=== PATIENT | female | born 1945 | race Caucasian/White ===

== ENCOUNTER 2018-07-26 14:51 | Outpatient (REF) | payer MEDICARE, OTHER, SELFPAY ==
[2018-07-26 21:08] LABS: TSH (W/Ref FT4) 1.18 uIU/mL (0.358-3.74)
[2018-07-28 10:59] LABS: Hepatitis C Ab w Rflx HCV PCR Negative (NEGAT)
== END 2018-07-26 15:11 ==
LOC: NCHCN 14:51
PROVIDERS: Visit Provider Nurse Practitioner Family
DX: N95.1 Menopausal and female climacteric states (principal); R19.8 Other specified symptoms and signs involving the digestive system and abdomen; M81.0 Age-related osteoporosis without current pathological fracture; Z78.0 Asymptomatic menopausal state; I10 Essential (primary) hypertension; Z11.59 Encounter for screening for other viral diseases
CPT/HCPCS: 86803; 84443

== ENCOUNTER 2018-08-03 00:54 | Outpatient (CLI) | payer MEDICARE, OTHER, SELFPAY ==
--- NOTE | 2018-08-03 14:15 | DI.DEXA_ITS ---
SYMPTOM/DIAGNOSIS: SCREENING FOR OSTEOPOROSIS IN A POSTMENOPAUSAL WOMAN, Z78.0 DEXA SCAN: Routine examination. Comparison is made with 2008. Evaluation of the lateral spine image shows no compression deformities. Evaluation of the right hip shows a total T score of -1.7 and a Z score of -0.1, this compares with a total T score of -0.8 from 2008. This is consistent with osteopenia and an increased fracture risk. Evaluation of the lumbar spine shows a total T score of -1.4 and a Z score of 0.9. This is consistent with osteopenia and an increased fracture risk. This compares with a total T score of -0.3 from 2008. There is no evidence of osteoporosis. IMPRESSION: Osteopenia in the left hip and lumbar spine.
== END 2018-08-03 01:14 ==
PROVIDERS: PCP Nurse Practitioner Family; Visit Provider Nurse Practitioner Family
DX: M85.88 Other specified disorders of bone density and structure, other site (principal); Z78.0 Asymptomatic menopausal state
CPT/HCPCS: 77080

== ENCOUNTER 2019-01-18 01:13 | Outpatient (CLI) | payer MEDICARE, SELFPAY ==
--- NOTE | 2019-01-18 08:22 | DI.MAMMO_ITS ---
SYMPTOM/DIAGNOSIS: SCREENING, Z12.31, [facility], Z00.00 MAMMOGRAMS: Mammograms were interpreted according to the usual protocol including computer analysis with CAD system, tomosynthesis and C view imaging. Comparison is made with exams from 8035-3796. The breasts are composed of scattered fibroglandular densities, breast density, Category B. No suspicious masses or suspicious microcalcifications are seen. There has been no significant change. IMPRESSION: Category 1, negative mammogram. Yearly screening mammography is recommended. [facility] ASSESSMENT OF FINDINGS: Negative. Category 1. Patient will receive a letter notifying them of these results. BI-RADS category B. There are scattered areas of fibroglandular density.
== END 2019-01-18 01:33 ==
PROVIDERS: PCP Nurse Practitioner Family; Visit Provider Nurse Practitioner Family
DX: Z12.31 Encounter for screening mammogram for malignant neoplasm of breast (principal)
CPT/HCPCS: 77063; 77067

== ENCOUNTER 2020-05-04 14:44 | Outpatient (REF) | payer MEDICARE, SELFPAY | END 2020-05-04 15:04 | LOC: NCHCN 14:44 | PROVIDERS: PCP Nurse Practitioner Family; Visit Provider Internal Medicine | DX: N39.0 Urinary tract infection, site not specified (principal) | CPT/HCPCS: 87077; 87086; 87186 ==

== ENCOUNTER 2020-07-31 01:33 | Outpatient (CLI) | payer MEDICARE, SELFPAY ==
--- NOTE | 2020-07-31 12:45 | DI.MAMMO_ITS ---
EXAM: MAMMO SCREENING CLINICAL HISTORY: SCREENING,Z12.31 TECHNIQUE: Bilateral full field digital CC and MLO mammographic images were obtained with 3D tomosyn thesis and utilizing computer aided detection (CAD). COMPARISON: Available for comparison. FINDINGS: Masses/Architectural Distortion: There is an asymmetric density in the posterior superior left breast on the MLO view. Microcalcifications: No suspicious pleomorphic-type are seen. Skin Thickening/Nipple Retraction: None. IMPRESSION: 1. Asymmetric density in the posterior superior left breast on the MLO view. 2. Spot compression view and a left breast ultrasound are recommended for further evaluation. BI-RADS Category 0 - Assessment Incomplete: Need additional imaging evaluation Breast Density - Category B - Scattered areas of fibroglandular density A negative radiographic report should not delay biopsy if a dominant or clinically suspicious mass is present. Up to ten percent of cancers are not identified on mammography. A negative report may reinforce clinical impression. Adenosis and dense breasts may obscure an underlying neoplasm. False positive reports average 6 to 10%. Patient will receive a letter notifying them of these results.
== END 2020-07-31 01:53 ==
PROVIDERS: PCP Nurse Practitioner Family
DX: Z12.31 Encounter for screening mammogram for malignant neoplasm of breast (principal); R92.8 Other abnormal and inconclusive findings on diagnostic imaging of breast
CPT/HCPCS: 77063; 77067

== ENCOUNTER 2020-08-03 04:08 | Outpatient (CLI) | payer MEDICARE, SELFPAY ==
--- NOTE | 2020-08-03 14:40 | DI.MAMMO_ITS ---
EXAM: MG MAMMO SCREEN CALL BACK UNI and U/S breast LT limited CLINICAL HISTORY: F/U MAMMO, ASYMMETRIC DENSITY POST SUPERIOR LT BREAST ON MLO VIEW. TECHNIQUE: Craniocaudal and mediolateral oblique Full Field Digital Mammography views of the left br east with Computer Aided Diagnosis followed by Tomosynthesis and left breast ultrasound. COMPARISON: Comparison with prior examinations. FINDINGS: Mammography/Tomosynthesis: Masses/Architectural Distortion: None seen. Microcalcifictions: No suspicious pleomorphic-type are seen. Skin Thickening/Nipple Retraction: None. Left breast US: Echotexture: Normal appearance of the glandular tissue. Shadowing: No suspicious foci. Cyst: None. Solid lesions: None seen. Ductal dilation: None. IMPRESSION: 1. No evidence of malignancy is noted. 2. Unless there is more urgent need, follow-up screening mammography is recommended, as per [place] [employer] guidelines. 3. The findings were discussed with the patient on the date of the examination. BI-RADS Category 1 - Negative Breast Density - Category B - Scattered areas of fibroglandular density A negative radiographic report should not delay biopsy if a dominant or clinically suspicious mass is present. Up to ten percent of cancers are not identified on mammography. A negative report may reinforce clinical impression. Adenosis and dense breasts may obscure an underlying neoplasm. False positive reports average 6 to 10%. Patient will receive a letter notifying them of these results.
== END 2020-08-03 04:28 ==
PROVIDERS: PCP Nurse Practitioner Family
DX: R92.8 Other abnormal and inconclusive findings on diagnostic imaging of breast (principal)
CPT/HCPCS: 76642; 77063; 77067

== ENCOUNTER 2020-08-14 00:42 | Outpatient (CLI) | payer MEDICARE, SELFPAY ==
--- NOTE | 2020-08-14 | DI.DEXA_ITS ---
EXAM: XR DEXA BONE DENSITY W/WO PEGGY CLINICAL HISTORY: OTHER SPECIFIC DISORDER OF BONE DENSITY,M85.88 TECHNIQUE: COMPARISON: Comparison examination is 08/03/2018. FINDINGS: Lateral Spine Image: Unremarkable. No compression deformities identified. Right hip: Total T-Score: -2.1. This compares with -1.7 on the prior examination. Total Z-Score: -0.4 T- and Z-scores: Findings are consistent with osteopenia and increased fracture risk. Lumbar Spine: Total T-Score: -1.8. This compares with -1.4 on the prior examination. Total Z-Score: 0.6 T- and Z-scores: Findings are consistent with osteopenia and increased fracture risk. IMPRESSION: Osteopenia in the lumbar spine and right hip.
== END 2020-08-14 01:02 ==
PROVIDERS: PCP Nurse Practitioner Family
DX: M85.88 Other specified disorders of bone density and structure, other site (principal)
CPT/HCPCS: 77080

== ENCOUNTER 2021-01-02 13:12 | Outpatient (REF) | payer MEDICARE, SELFPAY ==
[2021-01-02 22:59] LABS: Calculated LDL 139 mg/dL (<100); Cholesterol 230 mg/dL (<200); HDL Cholesterol 78 mg/dL (40-60); TSH (W/Ref FT4) 1.38 uIU/mL (0.36-3.74); Triglyceride 69 mg/dL (<150); Vitamin B12 266 pg/mL (193-986)
== END 2021-01-02 13:13 | disposition home or self-care (01) ==
LOC: NCHCN 13:12
PROVIDERS: PCP Nurse Practitioner Family
DX: G31.84 Mild cognitive impairment of uncertain or unknown etiology (principal); I10 Essential (primary) hypertension
CPT/HCPCS: 80061; 82607; 84443

== ENCOUNTER 2021-09-10 13:39 | Outpatient (REF) | payer MEDICARE, SELFPAY ==
--- OUTSIDE RECORDS SUMMARY | 2021-09-10 13:44 | XMS_ITS ---
:04/26/1947 External Reference #:[id number] Author Care Team Providers Name Role Phone Meg Primary Care Provider Unavailable Allergies None recorded. Medications Name Status Start Date Stop Date ? ? sulfamethoxazole 800 mg-trimethoprim 160 mg tablet Active ? Not available TAKE 1 TABLET BY MOUTH TWICE DAILY Problems Name Status Onset Date Source ? Vitamin D Deficiency Active 07/31/2021 ? Hyperlipidemia Active 07/31/2021 ? Diarrhea Active 07/31/2021 ? Dysuria Active 07/31/2021 ? Family History of Dementia Active 08/17/2021 ? Procedures None recorded. Results Lab Results None recorded. Past Encounters 08/08/2021 Diarrhea; Hyperlipidemia; Family History of Dementia Lindsey Weaver, ND: [address] [place] [address], Ph. [phone] 07/17/2021 Hyperlipidemia; Dysuria; Diarrhea; Vitam in D Deficiency; Family History of Dementia Lindsey Weaver, ND: [address] [place] [address], Ph. [phone] Social History None recorded. Vaccine List None recorded. Plan of Care Patient Instructions 1. TEsting requested first visit- l et me know if you want to go with [facility] prices or if your PCP will order some for you 2. Continue working with diet and return with log- 3. Genetic testing Apo E genotype instea d of comprehensive panel for memory related imbalances- we discussed 195 for this test alone 1, diet diary and sporebiotic and g i fortify lipa, b12/folate, vit D, cbc and chem 2 .b12 - 1 tab 2xday with complete multi 2 [id number] 3. UA- complete at [facility] apo E genotype quevedo and evexia workup? ther-biotic metabolic formula 1 cap 2xda y GI fortify 1 scoop 2xday in 10-12oz wate r or diluted juice then drink additional 10-12 oz after (wi thin the hour) Reminders Provider Appointments None recorded. ? ? Lab None recorded. ? ? Referral None recorded. ? ? Procedures None recorded. ? ? Surgeries None recorded. ? ? Imaging None recorded. ? ? Vitals Height Weight BMI 5 ft 2 in 112 lbs 20.5 kg/m2
--- OUTSIDE RECORDS SUMMARY | 2021-09-10 13:44 | XMS_ITS | Encounter Summary ---
:04/26/1947 External Reference #:[id number] Author Reason for Visit None recorded. Assessment and Plan Assessment Note I spent a total of 60 minutes face to face time with this patient and 35 minutes of that time was spent in counseling and coordination of care with that patient as described in the progress note and /or: recommended diagnostic studies Risk factor reduction instructions for treatment and follow-up 1. Hyperlipidemia ? high cholesterol: care ins tructions ? lipoprotein (a), quant, se rum 2. Dysuria ? painful urination (dysuria ): care instructions ? urinalysis, complete 3. Diarrhea ? diarrhea: care instruction s ? celiac disease comprehensi ve panel, serum ? CBC w/ diff ? CMP, serum or plasma 4. Vitamin D deficiency ? vitamin D, 25-hydroxy, tot al, serum 5. Family history of dementia ? apolipoprotein E genotype, blood Discussion Note: None recorded. Plan of Care Patient Instructions 1, diet diary and sporebiotic and g i fortify lipa, b12/folate, vit D, cbc and chem 2 .b12 - 1 tab 2xday with complete multi 2 [id number] 3. UA- complete at [facility] apo E genotype quevedo and evexia workup? ther-biotic metabolic formula 1 cap 2xda y GI fortify 1 scoop 2xday in 10-12oz wate r or diluted juice then drink additional 10-12 oz after (wi thin the hour) Reminders Provider Appointments None recorded. ? ? Lab Lipoprotein (a), ? Quant, Serum 07/17/2021 ? Urinalysis, [facility] Complete 07/17/2021 [facility] ? Celiac Disease ? Comprehensive Panel, Serum 07/31/2021 ? CBC W/ Diff ? 07/31/2021 ? CMP, Serum or ? Plasma 07/31/2021 ? Vitamin D, ? 25-Hydroxy, Total, Serum 07/31/2021 ? Apolipoprotein E ? Genotype, Blood 07/31/2021 Referral None recorded. ? ? Procedures None recorded. ? ? Surgeries None recorded. ? ? Imaging None recorded. ? ? Medications Name Start Date ? ? sulfamethoxazole 800 mg-trimethoprim 160 mg tablet ? TAKE 1 TABLET BY MOUTH TWICE DAILY Medications Administered None recorded. Vitals Height Weight BMI 5 ft 2 in 112 lbs 20.5 kg/m2 Results Lab Results None recorded. Allergies None recorded. Problems Name Status Onset Date Source ? Vitamin D Deficiency Active 07/31/2021 ? Hyperlipidemia Active 07/31/2021 ? Diarrhea Active 07/31/2021 ? Dysuria Active 07/31/2021 ? Family History of Dementia Active 08/17/2021 ? Procedures None recorded. Vaccine List None recorded. Social History None recorded. Functional Status Unknown. Past Encounters 07/17/2021 Hyperlipidemia; Dysuria; Diarrhea; Vitam in D Deficiency; Family History of Dementia Lindsey Weaver, ND: [address] [place] [address], Ph. 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
</div><div>she is able to answer all my questions accurately and able to expplain health history ac curately as i looked up her records on [facility]- </div><div>
</div> Review of Systems None recorded. Physical Exam ? General Adult Exam Reported By: Patient Constitutional: General Appearance: healthy- appearing, well-nourished, well-developed. Level of Dis tress: NAD. Ambulation: ambulating normally Psychiatric: Insight: good judgement. Men braden Status: active and alert, normal mood, normal affect. Orienta tion: to time, to place, to person. Memory: remote memory normal , recent memory abnormal; according to her family- not in office to day Head: Head: normocephalic, atrauma tic Eyes: Lids and Conjunctivae: non-i njected, no discharge, no pallor. Pupils: PERRLA. Corneas: opa city. Fundoscopic: grossly normal except where noted, normal o ptic discs, normal vessels, no exudates, no hemorrhages. EO M: EOMI. Lens: clear. Sclerae: non-icteric. Vision: periphe ral vision grossly intact, acuity grossly intact ENMT: Ears: no lesions on external ear, EACs clear, TMs clear, TM mobility normal. Hearing: no hearing loss. Nose: no lesions on external nose, nares patent, no septal deviation, nasal passages clear, no sinus tenderness, no nasal discharge. Lips, Teeth, and Gums: no mouth or lip ulcers , no bleeding gums, normal dentition. Oropharynx: moist mucous mem branes, no erythema, no exudates, tonsils not enlarged Neck: Neck: supple, trachea midlin e, no masses, FROM. Lymph Nodes: no cervical LAD, no supraclavic ular LAD, no axillary LAD, no inguinal LAD. Thyroid: no enlargement , non-tender, no nodules Lungs: Respiratory effort: no dyspn ea. Percussion: no dullness, flatness, or hyperresonance. Auscultat ion: breath sounds normal, good air movement, CTA except as note d, no wheezing, no rales/crackles, no rhonchi Cardiovascular: Apical Impulse: not displace d. Heart Auscultation: RRR, normal S1, normal S2, no murmurs, no ru bs, no gallops. Neck vessels: no carotid bruits. Pulses inclu ding femoral / pedal: normal throughout Abdomen: Bowel Sounds: normal. Inspec tion and Palpation: soft, non-distended, no tenderness , no guarding, no rebound tenderness, no masses, no CVA tenderness . Liver: non-tender, no hepatomegaly. Spleen: non-tender, no splen omegaly. Hernia: none palpable Musculoskeletal:: Motor Strength and Tone: nor mal motor strength, normal tone. Joints, Bones, and Muscles: normal movement of all extremities, no bony abnormalities, no contr actures, no malalignment, no tenderness. Extremities: no cyanosis, no edema, no varicosities, no palpable cord Neurologic: Gait and Station: normal gai t, normal station. Cranial Nerves: grossly intact. Sensation: g rossly intact, monofilament test intact. Coordination and Cer ebellum: no tremor Skin: Inspection and palpation: no rash, no lesions, no ulcer, no abnormal nevi, no induration , no nodules, good turgor, no jaundice. Nails: normal Back: Thoracolumbar Appearance: no rmal curvature
--- OUTSIDE RECORDS SUMMARY | 2021-09-10 13:44 | XMS_ITS | Encounter Summary ---
:04/26/1947 External Reference #:[id number] Author Reason for Visit None recorded. Assessment and Plan Assessment Note I spent a total of 40 minutes face to face time with this patient and 25 minutes of that time was spent in counseling and coordination of care with that patient as described in the progress note and /or: recommended diagnostic studies diagnostic results and impressions-diet log with BM 1. Diarrhea ? diarrhea: care instruction s 2. Hyperlipidemia ? high cholesterol: care ins tructions 3. Family history of dementia Discussion Note: None recorded. Plan of Care Patient Instructions 1. TEsting requested first visit- l et me know if you want to go with [email or web address] or if your PCP will order some for you 2. Continue working with diet and return with log- 3. Genetic testing Apo E genotype instea d of comprehensive panel for memory related imbalances- we discussed 195 for this test alone Reminders Provider Appointments None recorded. ? ? Lab None recorded. ? ? Referral None recorded. ? ? Procedures None recorded. ? ? Surgeries None recorded. ? ? Imaging None recorded. ? ? Medications Name Start Date ? ? sulfamethoxazole 800 mg-trimethoprim 160 mg tablet ? TAKE 1 TABLET BY MOUTH TWICE DAILY Medications Administered None recorded. Vitals None recorded. Results Lab Results None recorded. Allergies None recorded. Problems Name Status Onset Date Source ? Vitamin D Deficiency Active 07/31/2021 ? Hyperlipidemia Active 07/31/2021 ? Diarrhea Active 07/31/2021 ? Dysuria Active 07/31/2021 ? Family History of Dementia Active 08/17/2021 ? Procedures None recorded. Vaccine List None recorded. Social History None recorded. Functional Status Unknown. Past Encounters 08/08/2021 Diarrhea; Hyperlipidemia; Family History of Dementia Lindsey Weaver ND: [address] [facility] [place] [address], Ph. [phone] 07/17/2021 Hyperlipidemia; Dysuria; Diarrhea; Vitam in D Deficiency; Family History of Dementia Lindsey Weaver ND: [address] [place] [address], Ph. [phone] History of Present Illness Note: <div>she feels better more energy</div><div>her stomach isnot longer bloated </div><div>more stools are 2-5 instead of 1/2 or 7</div><div>more xconsisten0- </div><div> we discussed lab panels- she is not wanting to spend money at this time</div> Review of Systems None recorded. Physical Exam None recorded.
[2021-09-10 15:30] LABS: TSH (W/Ref FT4) 1.71 uIU/mL (0.36-3.74); Vitamin B12 212 pg/mL (193-986)
== END 2021-09-10 13:40 | disposition home or self-care (01) ==
LOC: NCHCN 13:39
PROVIDERS: PCP Nurse Practitioner Family; Visit Provider Nurse Practitioner Family
DX: R41.3 Other amnesia (principal); M25.552 Pain in left hip
CPT/HCPCS: 82607; 84443

== ENCOUNTER 2022-01-16 11:08 | Outpatient (CLI) | payer MEDICARE, SELFPAY ==
--- NOTE | 2022-01-16 10:45 | DI.RAD_ITS ---
Exam(s) XR HIP LT AP LAT ONLY EXAM: XR HIP LT AP LAT ONLY CLINICAL HISTORY: LEFT HIP PAIN. TECHNIQUE: 2D digital imaging was performed. COMPARISON: CR XR DEXA BONE DENSITY W/WO PEGGY from 08/14/2020 FINDINGS: Two views There is a left hip prosthesis. Components appear to be in satisfactory position alignment. No frac tures. No loosening evident. No radiographic evidence of osteomyelitis. IMPRESSION: DATA REPOSITORY: RADIATION DOSE DELIVERED:
== END 2022-01-16 11:09 | disposition home or self-care (01) ==
LOC: DIORS 11:08
PROVIDERS: PCP Nurse Practitioner Family; Referring Provider Nurse Practitioner Family; Visit Provider Student in an Organized Health Care Education/Training Program
DX: Z96.642 Presence of left artificial hip joint (principal); M25.552 Pain in left hip
CPT/HCPCS: 99203; 73502

== ENCOUNTER → 2022-01-29 00:53 | Outpatient (CLI) | payer MEDICARE, OTHER, SELFPAY ==
--- NOTE | 2022-01-29 06:45 | DI.NM_ITS ---
Exam(s) NM BONE SCAN 3 PHASE EXAM: [place] BONE SCAN 3 PHASE CLINICAL HISTORY: Painful left SACHIN,Z96.642. TECHNIQUE: Injected Dose: 25 mCi Tc-99m MDP COMPARISON: CR XR HIP LT AP LAT ONLY from 01/16/2022 FINDINGS: Perfusion: Symmetric. Blood Pool: Symmetric. Delayed: Photopenic area related to left hip prosthesis. Small focus of increased activity seen near tip femoral stem. No abnormality is visible on prior x-rays. No abnormal activity around the aceta bular component. The the patient's bladder is noted to be distended on the delayed images. The maninder ent emptied the bladder prior to imaging. This could indicate large postvoid residual. Degenerative changes and scoliosis are noted in the lumbar spine. IMPRESSION: Mildly increased activity at the tip of the femoral component of the left hip prosthesis which could indicate loosening. Distended bladder postvoid consistent with elevated postvoid residual. DATA REPOSITORY:
== END ==
PROVIDERS: PCP Nurse Practitioner Family; Visit Provider Physician Assistant
DX: M25.552 Pain in left hip (principal); Z96.642 Presence of left artificial hip joint
CPT/HCPCS: 78315

== ENCOUNTER 2022-01-29 01:17 | Outpatient (CLI) | payer MEDICARE, SELFPAY | END 2022-01-29 01:18 | disposition home or self-care (01) | LOC: LBO 01:17 | PROVIDERS: PCP Nurse Practitioner Family; Visit Provider Student in an Organized Health Care Education/Training Program ==

== ENCOUNTER 2022-02-06 02:31 | Outpatient (CLI) | payer MEDICARE, SELFPAY ==
--- OUTSIDE RECORDS SUMMARY | 2022-02-06 02:33 | XMS_ITS ---
[...] Diarrhea; Hyperlipidemia; Family History of Dementia Lindsey Herminiogia, ND: [address] [place] [address], Ph. [phone] 07/17/2021 Hyperlipidemia; Dysuria; Diarrhea; Vitam in D Deficiency; Family History of Dementia Lindsey Weaver, ND: [address] [place] [address], Ph. [phone] Social History None recorded. Vaccine List None [...] 1 tab 2xday with complete multi 2 [id number] 3. UA- complete at [facility] apo E genotype quevedo and evexia [...]
[2022-02-06 11:18] LABS: Calcium 8.6 mg/dL (8.5-10.1)
[2022-02-06 11:29] LABS: ESR < 1 mm/hr (0-30)
[2022-02-06 11:33] LABS: C-Reactive Protein 0.06 mg/dL (0.0-0.3)
[2022-02-06 11:39] LABS: Vitamin D 25 Total 34.3 ng/mL (30-100)
[2022-02-07 21:58] LABS: Cobalt, S 0.2 ng/mL
== END 2022-02-06 02:32 | disposition home or self-care (01) ==
LOC: LBO 02:31
PROVIDERS: Physician Assistant; PCP Nurse Practitioner Family; Visit Provider Student in an Organized Health Care Education/Training Program
DX: Z96.642 Presence of left artificial hip joint (principal); M81.0 Age-related osteoporosis without current pathological fracture
CPT/HCPCS: 36415; 82306; 85652; 82310; 82495; 83789; 86140

== ENCOUNTER → 2022-03-18 10:36 | Outpatient (BNVA) | payer MEDICARE, OTHER, SELFPAY | PROVIDERS: PCP Nurse Practitioner Family; Referring Provider Nurse Practitioner Family; Visit Provider Nurse Practitioner Adult Health | DX: R41.89 Other symptoms and signs involving cognitive functions and awareness (principal) | CPT/HCPCS: 99204; 99214 ==

== ENCOUNTER → 2022-04-23 01:53 | Outpatient (CLI) | payer MEDICARE, OTHER, SELFPAY ==
--- NOTE | 2022-04-23 07:00 | DI.MRI_ITS ---
Exam(s) MR BRAIN WO EXAM: MR BRAIN WO CLINICAL HISTORY: memory changes, congnitive impairment, R41.89 TECHNIQUE: Multiplanar multisequence MRI of the brain was performed. COMPARISON: No exams were available for comparison FINDINGS: VENTRICLES AND EXTRA AXIAL SPACES: Normal in size and morphology for the patient's age. MIDLINE SHIFT: None. CEREBRAL PARENCHYMA: No focus of restricted diffusion to suggest acute infarct. No space-occupying le beatrice identified. There are areas of hyperintense signal in the white matter on the T2 and FLAIR image s likely reflecting small vessel ischemic disease. HEMORRHAGE: None. BRAINSTEM/CEREBELLUM: Normal. CALVARIUM: Normal. VISUALIZED PARANASAL SINUSES/MASTOIDS:Clear. [place] OF ROSS: Normal flow void. PITUITARY GLAND: Unremarkable. OTHER FINDINGS: None. IMPRESSION: 1. No evidence of an acute infarct. 2. Findings most suggestive of chronic microvascular ischemic disease. DATA REPOSITORY:
== END ==
PROVIDERS: PCP Nurse Practitioner Family; Visit Provider Nurse Practitioner Adult Health
DX: R41.89 Other symptoms and signs involving cognitive functions and awareness (principal)
CPT/HCPCS: 99213; 70551

== ENCOUNTER 2023-07-22 21:15 | Outpatient (REF) | payer MEDICARE, OTHER, SELFPAY | END 2023-07-22 21:16 | disposition home or self-care (01) | LOC: NCHCN 21:15 | PROVIDERS: PCP Nurse Practitioner Family; Visit Provider Nurse Practitioner Family | DX: R30.0 Dysuria (principal) | CPT/HCPCS: 87086 ==

== ENCOUNTER 2023-08-10 21:35 | Outpatient (REF) | payer MEDICARE, SELFPAY | END 2023-08-10 21:36 | disposition home or self-care (01) | LOC: NCHCN 21:35 | PROVIDERS: PCP Nurse Practitioner Family; Visit Provider Family Medicine | DX: R30.0 Dysuria (principal) | CPT/HCPCS: 87086 ==

== ENCOUNTER 2024-05-03 21:39 | Outpatient (REF) | payer MEDICARE, OTHER, SELFPAY | END 2024-05-03 21:40 | disposition home or self-care (01) | LOC: LBN 21:39 | PROVIDERS: PCP Nurse Practitioner Family; Visit Provider Nurse Practitioner Family | DX: N30.01 Acute cystitis with hematuria (principal) | CPT/HCPCS: 87077; 87086 ==

== ENCOUNTER 2025-07-22 18:34 | Emergency (ER) | payer MEDICARE, OTHER, SELFPAY ==
[2025-07-22 18:38] VITALS: BP 188/83; PULSE 98; RESP 16; TEMP 36.7; O2SAT 98
--- NOTE | 2025-07-22 18:48 | W.ED.GENAD ---
Discharge Plan Disposition Patient Disposition: Home Condition: Stable Discharge Details Clinical Impression: Hematuria Primary Care Provider: Rina Oviedo ED Provider: Lovely Peck Home Meds and New Rx's Prescriptions: No Action donepezil 5 mg tablet 5 mg PO QHS Qty: 30 3RF vitamin [id number] acid 2,500-400 mcg tablet,disintegrating 0.25 tab PO DAILY [employer] 1.5 billion cell capsule 1 cap PO .Every 3 days multivitamin [Daily Vitamin] 1 EACH tablet 1 ea PO DAILY rizatriptan [Maxalt] 10 MG tablet 10 mg PO PRN PRN calcium carbonate [Calcium 500] 500 MG tablet 500 mg PO DAILY Discharge Instructions Instructions: Blood in Urine (Hematuria), Adult ED Additional Instructions: Please follow-up closely with your primary care provider. No evidence of urinary tract infection. I cannot determine what is the cause for the blood in your urine at this time without further workup including labs and imaging. Please discuss getting a ultrasound or CT with your primary care. Referrals: Rina Oviedo [Primary Care Provider, Medicine] - 3 days Referral Note: ER follow up, Call for an appointment Clinical Impression: Hematuria HPI General Mode of arrival: ambulatory. Date/Time Provider Initiated Documentation: 07/22/25 18:44. Limitations to Documentation: no limitations. Information obtained by: patient, RN notes reviewed and old records reviewed. HPI Narrative: 80-year-old female presents to the ER with a chief complaint of hematuria which began today. Denies any vomiting, back pain abdominal pain fever or chills. Denies any other associated symptoms. Does not take any medications on a regular basis at home. Related Data Home Medications ?Medication ?Instructions ?Recorded ?Confirmed calcium carbonate (Calcium 500) 500 mg PO DAILY 10/17/13 04/23/22 multivitamin (Daily Vitamin tablet) 1 ea PO DAILY 10/17/13 04/23/22 rizatriptan 10 mg tablet (Maxalt) 10 mg PO PRN PRN 10/17/13 04/23/22 Lactobacills gasseri-Bifidobac 1 cap PO .Every 3 days 01/31/22 04/23/22 bifidum,longum 1.5 billion cell capsule ([employer]) vitamin B12 2,500 mcg-folic acid 0.25 tab PO DAILY 01/31/22 04/23/22 400 mcg disintegrating tablet donepezil 5 mg tablet 5 mg PO QHS #30 tabs 04/23/22 04/23/22 Previous Rx's ?Medication ?Instructions ?Recorded donepezil 5 mg tablet 5 mg PO QHS #30 tabs 04/23/22 Allergies Allergy/AdvReac Type Severity Reaction Status Date / Time codeine Allergy Intermediate Unknown Verified 07/22/25 18:42 pneumococcal vaccine Allergy Hives Unverified 07/22/25 18:42 (Pneumococcal Vaccine) ibuprofen (From Advil) AdvReac Intermediate Headache Unverified 07/22/25 18:42 General Stated Complaint: Urinary MAKEDA: 3 Review of Systems Gastrointestinal Gastrointestinal: Denies abdominal pain, Denies diarrhea and Denies nausea Genitourinary Genitourinary: Reports as per HPI and Reports hematuria Exam Narrative Exam Narrative: Constitutional: Alert and oriented x3. Appears stated age. Normal body habitus. Head: Normocephalic, no trauma. Eyes: Pupils PERRL, Red reflex noted, EOM's intact. Eyelids symmetrical without lesions, discharge, or swelling. ENT: Bilateral TM's WNL, External ear normal to inspection, no mastoid TTP, swelling, or erythema, Nasal turbinates WNL, no nasal discharge. Normal dentition, Posterior pharynx WNL, no exudate. Chest: RRR, Normal S1, S2, distal pulses intact. Resp: Lungs clear to auscultation bilaterally, no wheezes, rales, or rhonchi. Abdomen: Soft, non-distended, Normoactive bowel sounds all 4 quads. Musculoskeletal: Normal gait, Moves all 4 extremities without difficulty. Skin: No suspicious rashes or lesions. Capillary refill less than 2 sec. Neurologic: Cranial nerves II-XII intact. Alert and oriented x 3. Motor: No deficits noted. Sensory: Intact bilaterally all 4 extremities. Hematologic/Lymphatic: No ecchymosis, no lymphadenopathy. Course Vital Signs Vital signs: Vital Signs Temperature 36.7 C 07/22/25 18:38 Pulse 98 H 07/22/25 18:38 Respiratory Rate 16 07/22/25 18:38 Blood Pressure 188/83 H 07/22/25 18:38 Pulse Oximetry 98 07/22/25 18:38 Temperature 36.7 C 07/22/25 18:38 Temperature Source Oral 07/22/25 18:38 Pulse 98 H 07/22/25 18:38 Respiratory Rate 16 07/22/25 18:38 Blood Pressure 188/83 H 07/22/25 18:38 Pulse Oximetry 98 07/22/25 18:38 Oxygen Delivery Method Room Air 07/22/25 18:38 Oxygen Flow Rate 0 07/22/25 18:38 Medical Decision Making 80-year-old female presents to the ER with a chief complaint of hematuria which began today. Denies any vomiting, back pain abdominal pain fever or chills. Denies any other associated symptoms. Does not take any medications on a regular basis at home. Urinalysis shows greater than 50 RBCs, greater than 300 protein, large blood. No nitrites no leukocytes. I did offer lab work and ordered CBC and a CMP which patient declined at this time. Patient continues to have no complaints of pain or fever or vomiting. I did discuss close follow-up with her primary care provider which she verbalized understanding. Discussed return instructions to return to the ER for any of the above symptoms. This text was generated using [employer] dictation system, please disregard any oddities of phrase or misspellings. PFSH All Active Problems (Updated 07/22/25 @ 20:03 by Lovely Peck NP) Hematuria (Acute) Alzheimer's dementia (Acute) Cognitive impairment (Acute) History of left hip replacement (Acute) Osteoporosis (Chronic) Migraine headache (Chronic) Medical History Lipid disorder Migraine Osteoarthritis Chronic UTI BCC (basal cell carcinoma) Rectal prolapse Osteopenia Mild cognitive impairment with memory loss Social History Smoking/Tobacco Use Status: Never Smoking risk assessment performed?: Yes Drug use: Never
[2025-07-22 19:42] LABS: Glucose Negative (Negative)
[2025-07-22 19:52] LABS: C & S Indicated? No; RBC >50 HPF (0-2)
== END 2025-07-22 20:24 | disposition home or self-care (01) ==
PROVIDERS: Emergency Provider Registered Nurse Emergency; PCP Nurse Practitioner Family
DX: R31.9 Hematuria, unspecified (principal); R30.0 Dysuria; G30.9 Alzheimer's disease, unspecified; F02.80 Dementia in other diseases classified elsewhere, unspecified severity, without behavioral disturbance, psychotic disturbance, mood disturbance, and anxiety
CPT/HCPCS: 80053; 99283; 81003; 81015; 85025

== ENCOUNTER 2025-08-03 11:58 | Outpatient (REF) | payer MEDICARE, OTHER, SELFPAY ==
[2025-08-03 15:05] LABS: HCT 38.2 % (36.0-46.0); HGB 12.3 g/dL (11.2-15.7); MCH 30.5 pg (27.0-33.0); MCHC 32.2 % (32.0-36.0); MCV 95 fL (80-95); MPV 12.0 fL (8.0-11.0); Platelet Count 203 10^3/uL (130-400); RBC 4.03 10^6/uL (3.93-5.22); RDW 13.2 % (11.7-14.6); RDW-SD 45.2 fL; WBC 4.45 10^3/uL (4.4-10.8)
[2025-08-03 15:58] LABS: ALT 18 U/L (14-59); AST 21 U/L (15-37); Albumin 3.8 g/dL (3.4-5.0); Alkaline Phosphatase 89 U/L (46-116); Anion Gap 9.8 mmol/L (3-11); BUN 20 mg/dL (7-18); Bilirubin, Total 0.4 mg/dL (0.2-1.0); CO2 27.2 mmol/L (21.0-32.0); Calcium 8.7 mg/dL (8.5-10.1); Chloride 106 mmol/L (98-107); Glucose 101 mg/dL (74-106); Potassium 4.3 mmol/L (3.5-5.1); Sodium 143 mmol/L (136-145); Total Protein 7.0 g/dL (6.4-8.2); Vitamin B12 232 pg/mL (193-986)
== END 2025-08-03 11:59 | disposition home or self-care (01) ==
LOC: NCHCN 11:58
PROVIDERS: PCP Nurse Practitioner Family; Visit Provider Family Medicine
DX: R31.9 Hematuria, unspecified (principal); R03.0 Elevated blood-pressure reading, without diagnosis of hypertension; R79.89 Other specified abnormal findings of blood chemistry
CPT/HCPCS: 80053; 85027; 82607

== ENCOUNTER 2025-08-04 21:14 | Outpatient (REF) | payer MEDICARE, OTHER, SELFPAY ==
[2025-08-04 21:20] LABS: Glucose Negative (Negative)
[2025-08-04 21:27] LABS: WBC >50 HPF (0-5)
== END 2025-08-04 21:15 | disposition home or self-care (01) ==
LOC: NCHCN 21:14
PROVIDERS: PCP Nurse Practitioner Family; Visit Provider Family Medicine
DX: R31.9 Hematuria, unspecified (principal)
CPT/HCPCS: 81003; 81015